=== PATIENT | male | born 1980 | race African-American/Black ===

== ENCOUNTER 2019-05-11 22:21 | Emergency (ER) | payer SELFPAY ==
[~2019-05-11] VITALS: Ht 180.3 cm; Wt 79.4 kg
[2019-05-11 22:49] VITALS: BP 120/78
[2019-05-11] MEDS ORDERED: CLINDAMYCIN 300 MG CAPSULE ONE (23:11)
[2019-05-11] MEDS ORDERED: CLINDAMYCIN 300 MG CAPSULE PO ONE (23:30)
== END 2019-05-11 23:27 ==
LOC: ED 23:21
DX: K64.4 Residual hemorrhoidal skin tags (principal); M79.5 Residual foreign body in soft tissue
CPT/HCPCS: 99283; 99284